=== PATIENT | female | born 1975 | race Caucasian/White ===

== ENCOUNTER 2016-08-07 08:55 | Day surgery (SDC) | payer BC ==
--- NOTE | ~2016-08-07 | OP ---
Record Of Operation [facility] [address] [place]. [address] NAME: HUNTER RAHMAN : 71 STATUS : REG [facility] [place] PAT#: [id number] AGE: 41 ADM/REG DATE : 08/07/16 MR#: [id number] REPORT SERV DATE: 08/07/16 DICTATED BY: ARIADNA GAMA DATE: 08/07/16 REPORT STATUS : Draft TRANSCRIBED BY: MODMendy DATE: 08/07/16 DATE OF PROCEDURE: PREOPERATIVE DIAGNOSIS: Left breast recurrent infection. POSTOPERATIVE DIAGNOSIS: Left breast recurrent infection. PROCEDURES: Left breast incision and drainage and a Milton placement. INDICATION FOR THE PROCEDURE: Ms Rahman is a healthy 41-year-old female, who I have been seeing since June of 2015. Over that time, she has had a right breast infection requiring multiple aspirations as well as an open surgery for incision and drainage. More recently, she began having issues on the left side back in late June of this year. She has had multiple rounds of antibiotics. We have drained some pus from the area with aspiration in the office, and this has not grown significant bacteria. She recently saw Infectious Disease, and they felt that this was going to require surgical intervention. To be tin, I have not found any obvious bacterial source in any of this patient's bilateral breast infections. She does not have obvious diabetes. This does not have the presentation of granulomatous mastitis. I am hopeful that with new cultures today and some tissue sent for culture, we may be able to find the source with help from the Infectious Disease physician. Plan today is for incision and drainage likely Milton placement, and cultures for anaerobic, aerobic, and fungal. Plan on taking the cultures of the purulent fluid as well as some necrotic tissue. OPERATIVE FINDINGS: After appropriate consent was on the chart, the patient was taken to the operating room in supine position. She was placed under general anesthesia without any complications. There was already an open wound draining pus and blood at the site of necrotic skin. The breast was prepped and draped in sterile fashion. An incision was made at the open site in the skin and additional blood and pus were drained out. Cultures were taken at that point of the fluid. The edges of the necrotic skin were taken, and took approximately a centimeter in all directions of the skin to try to get to back to some more healthy tissue for closure. Additionally, we did take some necrotic tissue from the central portion of this abscess for culture as well. There was a tract heading toward the 9 o'clock position over approximately a 3 to 4 cm distance. This was probed with the Yankauer suction. It was full of purulent material. The tissues did weep some purulent material throughout dissection. No additional tracts were found. The area was probed multiple times with finger fracture. There was quite a bit of bleeding secondary to the shear inflammation. The wound was copiously irrigated with warm saline multiple times. Hemostasis was achieved with Bovie cauterization. The Jennifer drain was placed into the tract heading toward the 9 o'clock position and came out at the edge of the areola laterally. The skin was closed loosely over top of this with 3-0 nylon sutures in an interrupted fashion. The most lateral portion of the incision with a Milton came out was allowed to be open slightly over approximately 7 to 8 mm distance. Skin was cleansed and dried. A Jennifer was trimmed. Burn fluff and a binder overlaid. Local anesthetic 0.25% Marcaine with epinephrine and 1% lidocaine plain mixed was injected into the soft tissues prior to closure. The patient tolerated the procedure well. She was awoken from anesthesia Record Of [address] [address] NAME: HUNTER RAHMAN : 71 STATUS : REG [facility] [place] PAT#: [id number] AGE: 41 ADM/REG DATE : 08/07/16 MR#: [id number] REPORT SERV DATE: 08/07/16 DICTATED BY: ARIADNA GAMA DATE: 08/07/16 REPORT STATUS : Draft TRANSCRIBED BY: MODMendy DATE: 08/07/16 without complication, taken to the PACU in stable condition for recovery. All counts were correct at the end the case. ESTIMATED BLOOD LOSS: 100 mL. COMPLICATIONS: None. SPECIMEN: Culture for anaerobic, aerobic, and fungal, both tissue and fluid. KILO/DESTINEE Ariadna Gama MD / [id number] CC: MD Ascencion Leach D.O. Lai Reinoso M.D. [facility]
[~2016-08-07 08:55] MED LIST: ALLEGRA180 PO; BUSPAR30 MG PO; CELEXA20 PO; COG0.5 PO; EXCEDRIN MIGRA1 EAC1 PO; FANAPT; FLEX PO; GEODON20 PO; IMITREX100 MG PO; LIPITOR20 PO; MOBIC7.5 PO; MULTIVIT/MIN PO; PEP20 PO; PRILO PO; SAPHRIS10 MG SL; SINGULAIR5 PO; X25 PO; XANAX1 MG PO; [UNRECOGNIZED DRUG - REMARK]
[2016-08-07 09:20] LABS: HEMATOCRIT 43.9 % (36.0-48.0); HEMOGLOBIN 14.4 g/dL (12.0-16.0)
== END 2016-08-07 14:03 | disposition home or self-care (01) ==
LOC: SDC 08:55
PROVIDERS: Surgery Surgical Oncology
PROC: 0H9U00Z Drainage of Left Breast with Drainage Device, Open Approach (ICD-10-PCS; principal; 2016-08-07 10:15)
DX: N61.1 Abscess of the breast and nipple (principal); K21.9 Gastro-esophageal reflux disease without esophagitis; Z98.890 Other specified postprocedural states; Z87.891 Personal history of nicotine dependence
CPT/HCPCS: 84703; 85014; 85018; 87015; 87070; 87075; 87102; 87116; 87205; 88304; 88305; 88312; A9270-GY; J1956; J2250; J2270; J2405; J3010